=== PATIENT | female | born 1960 | race Caucasian/White ===

== ENCOUNTER 2020-05-21 11:57 | Day surgery (SDC) | payer BC ==
[2020-05-19 11:30] LABS: BASOPHILS % (AUTO) 0.5 % (0-1); EOSINOPHILS # (AUTO) 0.2 X10'3 (0-0.9); EOSINOPHILS % (AUTO) 2.9 % (0-6); HEMATOCRIT 32.7 % (35.0-45.0); LYMPHOCYTES # (AUTO) 0.8 X10'3 (1.1-4.8); LYMPHOCYTES % (AUTO) 16.3 % (21-51); MEAN CORPUSCULAR HEMOGLOBIN 31.1 PG (27.0-31.0); MEAN CORPUSCULAR HGB CONC 33.7 g/dL (33.0-36.5); MEAN CORPUSCULAR VOLUME 92.1 FL (78-98); MONOCYTES # (AUTO) 0.3 X10'3 (0-0.9); MONOCYTES % (AUTO) 6.3 % (2-12); NEUTROPHILS # (AUTO) 3.9 X10'3 (1.8-7.7); PLATELET COUNT 189 X10'3 (140-440); RED BLOOD COUNT 3.55 X10'6 (4.20-5.60); RED CELL DISTRIBUTION WIDTH 13.8 % (11.5-14.5); WHITE BLOOD COUNT 5.2 X10'3 (4.5-11.0)
[2020-05-19 11:45] LABS: PARTIAL THROMBOPLASTIN TIME 31 SECONDS (22-32)
[2020-05-19 11:51] LABS: ALANINE AMINOTRANSFERASE 13 U/L (12-78); ALBUMIN 3.2 G/DL (3.4-5.0); ALBUMIN/GLOBULIN RATIO 0.9 (1.1-1.5); ALKALINE PHOSPHATASE 60 IU/L (46-116); ANION GAP 13 (8-16); ASPARTATE AMINO TRANSFERASE 14 U/L (10-37); BILIRUBIN,TOTAL 0.4 MG/DL (0.1-1.0); BLOOD UREA NITROGEN 58 MG/DL (7-18); BUN/CREATININE RATIO 7.3 (6.6-38.0); CALCIUM 8.4 MG/DL (8.5-10.1); CHLORIDE 96 MMOL/L (99-107); GLUCOSE 105 MG/DL (70-104); POTASSIUM 4.4 MMOL/L (3.5-5.1); SODIUM 129 MMOL/L (135-145); TOTAL CARBON DIOXIDE 20.5 MMOL/L (24-32); TOTAL PROTEIN 6.7 G/DL (6.4-8.2); eGFR 5 ML/MIN
[2020-05-21] VITALS (10 sets, daily range): BP systolic 104–150; BP diastolic 52–68
[~2020-05-21] VITALS: Ht 172.7 cm; Wt 76.2 kg
[2020-05-21] MEDS ORDERED: LORazepam 0.5 MG tablet PO PRN (12:25)
[2020-05-21] MEDS ORDERED: nitroGLYCERIN 0.4mg SUBLingual tab SL PRN (12:25)
[2020-05-21] MEDS ORDERED: normal saline 1,000 ML IV SCH (12:25)
[2020-05-21] MEDS ORDERED: diphenhydrAMINE 25mg capsule PO PRN (12:25)
[2020-05-21] MEDS ORDERED: LOSA25TA96 PO (12:55)
[2020-05-21] MEDS ORDERED: PHO667C PO (12:55)
[2020-05-21] MEDS ORDERED: CALC0.2536 PO (12:55)
[2020-05-21] MEDS ORDERED: DILT180C53 PO (12:55)
[2020-05-21] MEDS ORDERED: LEVO150T8 PO (12:55)
[2020-05-21] MEDS ORDERED: DOCU-148 PO (12:55)
[2020-05-21] MEDS ORDERED: DILT60CA2 PO (12:55)
[2020-05-21] MEDS ORDERED: iohexol 350 MG/ML 50ML vial IV ONE (13:26)
[2020-05-21] MEDS ORDERED: fentaNYL/PF 50MCG/1 ML 2ML syringe ONE (13:26)
[2020-05-21] MEDS ORDERED: iohexol 350MG/ML 100ml bottle IV ONE (13:26)
[2020-05-21] MEDS ORDERED: LIDOcaine 1% (10mg/ml)w/preservative injection 20ml MDV ONE (13:26)
[2020-05-21] MEDS ORDERED: midazolam 2 mg/2 ml injection ONE (13:26)
[2020-05-21] MEDS ORDERED: OXAZEpam 15mg capsule PO PRN (14:50)
[2020-05-21] MEDS ORDERED: HYDROcodone/acetaminophen 5mg/325mg tablet PO PRN (14:50)
[2020-05-21] MEDS ORDERED: HYDROcodone/acetaminophen 10/325mg tab PO PRN (14:50)
[2020-05-21] MEDS ORDERED: proCHLORperazine 10 MG/2 ml inj IV PRN (14:50)
[2020-05-21] MEDS ORDERED: ondansetron/PF 4mg/2ml inj IV PRN (14:50)
== END 2020-05-21 20:00 | disposition home or self-care (01) ==
LOC: SSTAY O 11:57
PROVIDERS: ATTEND Internal Medicine Cardiovascular Disease
DX: R94.39 Abnormal result of other cardiovascular function study (principal); I25.10 Atherosclerotic heart disease of native coronary artery without angina pectoris; E03.9 Hypothyroidism, unspecified; I10 Essential (primary) hypertension; E78.5 Hyperlipidemia, unspecified; Z79.01 Long term (current) use of anticoagulants; Z79.899 Other long term (current) drug therapy; Z88.1 Allergy status to other antibiotic agents; R06.02 Shortness of breath
CPT/HCPCS: 36415; 71046; 80053; 83880; 85025; 85610; 85730; 93005; 93458; 99152; C1760; C1769; J1644; J2001; J2250; J3010; J7030; Q0163; Q9967; A4620; A6258

== ENCOUNTER 2025-05-31 18:45 | Emergency (ER) | payer MEDICARE, BC ==
[~2025-05-31] VITALS: Ht 172.7 cm; Wt 90.0 kg
[~2025-05-31 18:45] MED LIST: CALC0.2536 PO; DILT180C53 PO; DILT60CA2 PO; DOCU-148 PO; LEVO150T8 PO; LOSA-415 PO; PHO667C PO
--- NOTE | 2025-05-31 18:55 | ELECTROCARDIOGRAPH REPORT ---
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 Steve Cervantes Measurements Intervals [place] Rate: 159 P: 0 [place]: 0 QRS: 60 QRSD: 89 T: 36 QT: 291 QTc: 474 Interpretive Statements Atrial fibrillation with rapid V-rate ST depression, probably rate related Electronically Signed On 06-12-2025 22:21:[address] Steve Cervantes Please click the below link to view image of tracing.
[2025-05-31 19:04] LABS: MEAN PLATELET VOLUME 7.2 FL (7.4-10.4); RED CELL DISTRIBUTION WIDTH 13.3 % (11.5-14.5)
--- NOTE | 2025-05-31 19:06 | Physician Documentation ---
History of Present Illness General Chief Complaint: Rapid Heartbeat Stated Complaint: FLANK PAIN Time Seen by MD: 18:58 History of Present Illness Initial Comments The patient is a 65-year-old female who states she developed palpitations any rapid heart rate proximally an hour and a half prior to arrival in the emergency room. She denies any chest pain or shortness of breath she denies any history of atrial fibrillation in the past. Patient's symptoms are moderate and persistent. Patient denies any nausea vomiting or diarrhea the patient denies any fevers or chills patient does have history of kidney disease and she has had a kidney transplant. Medication Reconciliation Allergies: Coded Allergies: doxycycline (Verified Allergy, Unknown, 05/21/20) Scheduled Calcium Acetate (PHOSLO capsule), 1 CAP PO Q8H, (Reported) Cholecalciferol (Vitamin D3) (Vitamin D3), 2,000 UNITS PO MWF, (Reported) Diltiazem HCl (Dilt-Xr), 1 CAP PO DAILY, (Reported) Levothyroxine Sodium (Levothyroxine Sodium), 1 TAB PO DAILY@0700, (Reported) Losartan Potassium (Losartan Potassium), 1 TAB PO BID, (Reported) Mycophenolate Mofetil (Mycophenolate Mofetil), 1 TAB PO BID, (Reported) Prednisone (Prednisone), 1 TAB PO DAILY, (Reported) Tacrolimus Anhydrous (Prograf), 1 CAP PO BID, (Reported) Scheduled PRN Docusate Sodium (Colace), 1 CAP PO Q12H PRN for constipation, (Reported) Miscellaneous Medications Calcitriol (CALCITRIOL capsule), 0.25 MCG PO, (Reported) Discontinued Medications Diltiazem HCl (Cartia Xt), 1 CAP PO DAILY, (Reported) Discontinued Reason: patient no longer taking Diltiazem HCl (Diltiazem ER), 1 CAP PO HS, (Reported) Discontinued Reason: patient no longer taking Levothyroxine Sodium (Levothyroxine Sodium), 1 TAB PO DAILY, (Reported) Discontinued Reason: Other Losartan Potassium* (Cozaar*), 1 TAB PO DAILY, (Reported) Discontinued Reason: patient no longer taking Review of Systems All Other Systems at this time: Reviewed and Negative Physical Exam Physical Exam Vital Signs: Temperature: 98.0, Heart Rate: 170, Respiratory Rate: 18, BP: 151/81, Pulse Oximetry: 98, Weight: 90.000 Physical Exam VITALS: Reviewed and as above. GENERAL: Alert, no apparent distress. HEENT: Normocephalic, atraumatic, PERRL, EOMI, dry mucosa, no erythema RESPIRATORY: Lungs clear, normal breath sounds, no respiratory distress. CHEST: No accessory muscle use, no retractions CV: Tachycardic irregularly irregular rhythm, , no edema, no murmur, No: JVD GI: Soft, non-tender, bowels sounds present, no rebound, guarding, or rigidity BACK: No CVA tenderness, or swelling MUSCULOSKELETAL: No deformities, no edema SKIN: Warm and dry, no rash NEURO: Oriented x4, No motor or sensory deficit PSYCH: Normal mood and affect, no agitation Progress Results/Orders Results/Orders Orders - OHLPARIS WARNER MD Chest,Single View (05/31/25 18:52) Completed Orders - OHPARIS HELTON MD Cbc/Diff (05/31/25 18:52) Pt Inr (05/31/25 18:52) PTT (05/31/25 18:52) Urinalysis, Cult If Indicated (05/31/25 18:52) Chest,Single View (05/31/25 18:52) Electrocardiogram (05/31/25 18:52) Hs Troponin I W Calculations (05/31/25 18:52) Hs Troponin I W Calculations (05/31/25 20:52) MG (05/31/25 19:01) Diltiazem Iv (Cardizem Iv 5mg/Ml Inj.) (05/31/25 19:10) Normal Saline 1000ml (0.9% Sodium Chlori (05/31/25 19:10) BMP (05/31/25 18:54) Stat Ekg (05/31/25 ) Medications Received in ER Medications (Trade) Dose Ordered Sig/Purvi Route PRN Reason Start Time Stop Time Status Last Admin Dose Admin (Cardizem IV 5mg/ ml inj.) 25 mg ONCE ONCE IV 05/31/25 19:10 05/31/25 19:11 DC 05/31/25 19:14 25 MG (0.9% sodium chloride (NS) 1000ml IV soln) 1,000 ml ONCE ONCE IVB 05/31/25 19:10 05/31/25 19:11 DC 05/31/25 19:16 1,000 ML Vital Signs 05/31/25 05/31/25 05/31/25 05/31/25 18:49 19:14 19:48 20:15 Temp 98.0 Pulse 170 154 81 Resp 18 16 16 B/P (MAP) 151/81 177/97 172/81 (111) Pulse Ox 98 99 05/31/25 05/31/25 05/31/25 20:30 21:11 21:37 Temp 98.1 Pulse 86 66 78 Resp 13 16 16 B/P (MAP) 145/69 (94) 146/64 (91) 124/56 Pulse Ox 98 98 99 Laboratory Tests Test 05/31/25 18:54 05/31/25 18:56 05/31/25 20:54 White Blood Count 12.2 H Red Blood Count 4.91 Hemoglobin 14.7 Hematocrit 43.2 Mean Corpuscular Volume 88.0 Mean Corpuscular Hemoglobin 29.9 Mean Corpuscular Hemoglobin Concent 33.9 Red Cell Distribution Width 13.3 Platelet Count 412 Mean Platelet Volume 7.2 L Neutrophils (%) (Auto) 67.9 Lymphocytes (%) (Auto) 23.5 Monocytes (%) (Auto) 5.9 Eosinophils (%) (Auto) 2.1 Basophils (%) (Auto) 0.6 Neutrophils # (Auto) 8.3 H Lymphocytes # (Auto) 2.9 Monocytes # (Auto) 0.7 Eosinophils # (Auto) 0.3 Basophils # (Auto) 0.1 CBC Comment Prothrombin Time 10.7 INR International Normalized Ratio 1.0 Activated Partial Thromboplast Time 29 Coagulation Comments Sodium Level 136 Potassium Level 4.5 Chloride Level 100 Carbon Dioxide Level 23.0 L Anion Gap 13 Blood Urea Nitrogen 18 Creatinine 0.94 H Estimated GFR/1.73 m2 60 BUN/Creatinine Ratio 19.1 Glucose Level 124 H Calcium Level 9.3 Magnesium Level 2.1 Troponin I High Sensitivity 8 38 Albumin 4.2 Chemistry Comments Urine Specimen Description Voided Urine Color Yellow Urine Clarity Clear Urine pH 6.0 Urine Specific [place] <=1.005 Urine Protein Negative Urine Glucose (UA) Negative Urine Ketones Negative Urine Occult Blood Negative Urine Nitrite Negative Urine Bilirubin Negative Urine Urobilinogen 0.2 Urine Leukocyte Esterase Negative Urine Culture Indicated Not ind Volume Urine Centrifuged 10 ml Urine Comment Troponin I High Sens Percent Delta 375 Troponin I Hi Sens Absolute Change 30 EKG/XRAY/CT/US/VASC/MRI Chest X-Ray : Additional Comments Patient: CORTES VELASQUEZ Medical Record: [id number] [facility] : 1960, Age: 65 Sex: Female Location: ER Patient Status: REG ER Service Date/Time: 05/31/251851 Ordering Physician: PARIS ORDOÑEZ MD Exam: CHEST,SINGLE VIEW CHEST RADIOGRAPH Indication: CHEST PAIN Technique: Single frontal view of the chest was obtained COMPARISON: None FINDINGS: Lines and Tubes: None Lungs: Clear Pleura: No effusion. No pneumothorax. Cardiomediastinal contours: Unremarkable Bones: Unremarkable IMPRESSION: 1. No acute disease. Electronically Signed by:HOMERO OLIVIER MD Date & Time: 05/31/251940 Dictated by: HOMERO OLIVIER MD Dictation date and time: 05/31/251916 Primary Care Provider: NO PRIMARY CARE PROVIDER cc: PARIS ORDOÑEZ MD ~ Medical Decision Making Findings The patient's initial EKG was interpreted as a rapid atrial fibrillation. The patient was given a dose of 25 mg of Cardizem and shortly after that had complete resolution of her atrial fibrillation. Her initial EKG was read as atrial fibrillation with a normal axis and a rate of 159 beats per minute the patient had nonspecific ST abnormalities and it was interpreted by me as an abnormal EKG the time of the EKG interpretation was 1855 your 2nd EKG after receiving Cardizem demonstrated a normal axis with no ST segment elevation no ST depression a normal sinus rhythm with a rate of 72 and a normal axis it was interpreted as a normal EKG this was interpreted at 2048. Patient's chest x-ray was reviewed by myself I interpreted the x-ray as a normal-appearing chest x-ray with a normal cardiac silhouette normal mediastinum and normal-appearing lung fletcher I have also reviewed the radiologist's interpretation as well patient's labs were reviewed patient's symptoms improved after the Cardizem the patient has no known history of atrial fibrillation she has been advised to return if symptoms reoccur or if she develops any chest pain or shortness of breath. Patient's prior hospitalizations have been reviewed. The patient's pulse oximetry was interpreted as normal and adequate. The patient will be discharged Departure Time of Disposition: 21:10 Disposition: 01 HOME / SELF CARE / HOMELESS Impression: Primary Impression: Paroxysmal atrial fibrillation Discharge Instructions: Atrial Fibrillation, [id number] Additional Instructions: Follow up with your big machine consultant, return for recurrent symptoms. Referrals: NO PRIMARY CARE PROVIDER (PCP) Critical Care Note Total Time (mins): 35 Critical Care Note The very real possibility of a deterioration of this patient's condition required the highest level of my preparedness for sudden, emergent intervention. I provided critical care services, which included medication orders, frequent reevaluations of the patient's condition and response to treatment, ordering and reviewing test results, and discussing the case with various consultants. Excludes time spent performing separately billable procedures. The critical care time associated with the care of the patient was 35 minutes. Signature Scribe Signature: no scribe Attestation: The note accurately reflects work and decisions made by me.Paris Ordoñez MD 06/01/25 02:56 PARIS ORDOÑEZ MD May 31, 2025 19:06
[2025-05-31 19:12] LABS: LEUKOCYTE ESTERASE ,URINE NEGATIVE (Neg); NITRITES, URINE NEGATIVE (Neg); OCCULT BLOOD,URINE NEGATIVE (Neg)
[2025-05-31 19:13] LABS: UA COLLECTION TYPE VOIDED
[2025-05-31] MEDS: diltiazem 5mg/ml 5ml inj. IV ONE (19:14)
[2025-05-31] MEDS: normal saline 1000ML IV soln IVB ONE (19:16)
[2025-05-31 19:17] LABS: APTT 29 SECONDS (22-32); INR 1.0 INR
[2025-05-31] MEDS ORDERED: LOSA50TA64 PO (19:26)
[2025-05-31] MEDS ORDERED: DILT240C47 PO (19:26)
[2025-05-31] MEDS ORDERED: LEVO125T8 PO (19:27)
[2025-05-31] MEDS ORDERED: PRED2.5T4 PO (19:29)
[2025-05-31] MEDS ORDERED: TACR1CAP PO (19:31)
[2025-05-31] MEDS ORDERED: MYCO500T5 PO (19:32)
[2025-05-31 19:44] LABS: CREATININE 0.94 MG/DL (0.40-0.90); TOTAL CARBON DIOXIDE 23.0 MMOL/L (24-32); eCRCL 59 ML/MIN; eGFR 60 ML/MIN
--- NOTE | 2025-05-31 19:44 | RADIOLOGY REPORT ---
CHEST RADIOGRAPH Indication: CHEST PAIN Technique: Single frontal view of the chest was obtained COMPARISON: None FINDINGS: Lines and Tubes: None Lungs: Clear Pleura: No effusion. No pneumothorax. Cardiomediastinal contours: Unremarkable Bones: Unremarkable IMPRESSION: 1. No acute disease.
[2025-05-31] MEDS ORDERED: CHOL100046 PO (19:54)
--- NOTE | 2025-05-31 20:49 | ELECTROCARDIOGRAPH REPORT ---
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 Steve Cervantes Measurements Intervals [place] Rate: 72 P: -52 [place]: 127 QRS: 56 QRSD: 94 T: 49 QT: 401 QTc: 439 Interpretive Statements Sinus or ectopic atrial rhythm Electronically Signed On 06-12-2025 22:21:[address] Steve Cervantes Please click the below link to view image of tracing.
[2025-05-31 21:37] VITALS: BP 124/56; PULSE 78; RESP 16; TEMP 98.1; O2SAT 99
== END 2025-05-31 21:43 | disposition home or self-care (01) ==
LOC: ER 18:46
DX: I48.0 Paroxysmal atrial fibrillation (principal); Z88.1 Allergy status to other antibiotic agents; Z79.899 Other long term (current) drug therapy
CPT/HCPCS: 36415; 71045; 80048; 81003; 83735; 84484; 85025; 85610; 85730; 93005; 96361; 96374; 99291; J3490; J7030